=== PATIENT | male | born 2000 | race Caucasian/White ===

== ENCOUNTER 2020-05-08 19:36 | Outpatient (REF) | payer BC, SELFPAY ==
[2020-05-08 20:36] LABS: HCT 46.9 % (40.0-50.0); HGB 16.2 g/dL (13.5-17.5); MCH 29.4 pg (27.0-33.0); MCHC 34.5 % (32.0-36.0); MCV 85.1 fL (80-95); MPV 8.7 fL (8.0-11.0); Platelet Count 375 10^3/uL (130-400); RBC 5.51 10^6/uL (4.36-5.78); RDW 12.1 % (11.8-14.1); RDW-SD 37.7 fL; WBC 8.53 10^3/uL (4.4-10.8)
[2020-05-08 21:00] LABS: Anion Gap 9.9 mmol/L (3-11); BUN 14 mg/dL (7-18); CO2 26.1 mmol/L (21.0-32.0); Calcium 9.7 mg/dL (8.5-10.1); Chloride 104 mmol/L (98-107); Glucose 91 mg/dL (74-106); Potassium 3.8 mmol/L (3.5-5.1); Sodium 140 mmol/L (136-145); TSH 2.01 uIU/mL (0.36-3.74)
== END 2020-05-08 19:37 | disposition home or self-care (01) ==
LOC: NCHCN 19:36
PROVIDERS: Visit Provider Internal Medicine
DX: R00.2 Palpitations (principal); R94.31 Abnormal electrocardiogram [ECG] [EKG]
CPT/HCPCS: 80048; 85027; 84443

== ENCOUNTER 2021-02-12 15:26 | Outpatient (REF) | payer BC, SELFPAY ==
[2021-02-14 15:10] LABS: Chlamydia Result Negative (Negative); GC Result Negative (Negative)
== END 2021-02-12 15:27 | disposition home or self-care (01) ==
LOC: NCHCN 15:26
PROVIDERS: Visit Provider Physician Assistant
DX: R39.15 Urgency of urination (principal)
CPT/HCPCS: 87491; 87591

== ENCOUNTER 2022-03-06 10:13 | Outpatient (REF) | payer BC, SELFPAY ==
[2022-03-06 20:23] LABS: Calculated LDL 89 mg/dL (<100); Cholesterol 160 mg/dL (<200); HDL Cholesterol 66 mg/dL (40-60); Triglyceride 26 mg/dL (<150)
== END 2022-03-06 10:14 | disposition home or self-care (01) ==
LOC: NCHCN 10:13
PROVIDERS: Visit Provider Physician Assistant
DX: Z00.00 Encounter for general adult medical examination without abnormal findings (principal); K58.9 Irritable bowel syndrome, unspecified; Z13.220 Encounter for screening for lipoid disorders
CPT/HCPCS: 80061

== ENCOUNTER 2024-03-31 10:05 | Outpatient (REF) | payer BC, SELFPAY ==
--- OUTSIDE RECORDS SUMMARY | 2024-03-31 10:07 | XMS_ITS | Referral Summary ---
Author Organization [facility] Address [address] [place] [address] Care Team Providers Care Harvesting Supervisor Name Role Phone Unavailable Primary Care Provider Unavailabl e Social History Tobacco Use Types Packs/Day Years Used Date Smoking Tobacco: Never Assessed Sex and Gender Information Value Date Recorded Sex Assigned at Not on file Legal Sex Male 7:52 EST Gender Identity Not on file Sexual Orientation Not on file Plan of Treatment Not on file
--- OUTSIDE RECORDS SUMMARY | 2024-03-31 10:07 | XMS_ITS | Encounter Summary ---
Author Organization [facility] Address [address] [place] [address] Care Team Providers Care Strike Off Machine Operator Name Role Phone Unavailable Primary Care Provider Unavailabl e Encounter Details Date Type Department Care Team (Late st Contact Info) Description 02/13/2021 Lab Requisition [facility] Pathology & Laboratory Medicine - [facility] [address] [place] [address] Outr Resulting Lab, Provider Social History Tobacco Use Types Packs/Day Years Used Date Smoking Tobacco: Never Assessed Sex and Gender Information Value Date Recorded Sex Assigned at Not on file Legal Sex Male 7:52 EST Gender Identity Not on file Sexual Orientation Not on file documented as of this encounter Plan of Treatment Not on file documented as of this encounter Procedures Procedure Name Priority Date/Time Associated Diagnosis Comments CHLAMYDIA/N. GONORRHOEAE AMPLIFIED NUCLEIC ACID Routine 02/12/2021 14:30 EST documented in this encounter Results * CHLAMYDIA/N. GONORRHOEAE AMPLIFIED RNA (02/12/2021 14:30 EST) Neisseria gonorrhoeae Result Negative Negative 02/14/2021 15:05 EST [facility] Chlamydia trachomatis Result Negative Negative 02/14/2021 15:05 EST [facility] Urine URINE / Unknown 02/12/2021 1 4:30 EST 02/13/2021 22:21 EST us Provider Outr Resulting Lab MICROBIOLOGY - GENER AL ORDERABLES Final Result [facility] [address] [place] [address] documented in this encounter Visit Diagnoses Not on filedocumented in this encounter
--- OUTSIDE RECORDS SUMMARY | 2024-03-31 10:07 | XMS_ITS | Clinical Summary ---
Author Organization [facility] Address [address] [place] [address] Care Team Providers Care Brooch Maker Novelty Name Role Phone Unavailable Primary Care Provider Unavailabl e Social History Tobacco Use Types Packs/Day Years Used Date Smoking Tobacco: Never Assessed Sex and Gender Information Value Date Recorded Sex Assigned at Not on file Legal Sex Male 7:52 EST Gender Identity Not on file Sexual Orientation Not on file Plan of Treatment Health Maintenance Due Date Last Done Comments Hepatitis C Screen 1998 Hepatitis B Vaccine (1 of 3 - 19+ 3-dose series) 06/11 COVID-19 Vaccine (2023- season) 2023
[2024-03-31 18:56] LABS: ALT 24 U/L (16-63); AST 23 U/L (15-37); Albumin 4.3 g/dL (3.4-5.0); Alkaline Phosphatase 50 U/L (46-116); Anion Gap -1.3 mmol/L (3-11); BUN 20 mg/dL (7-18); Bilirubin, Total 1.18 mg/dL (0.2-1.0); CO2 29.3 mmol/L (21.0-32.0); CREATININE 1.1 mg/dL (0.70-1.30); Calcium 9.8 mg/dL (8.5-10.1); Calculated LDL 106 mg/dL (<100); Chloride 102 mmol/L (98-107); Cholesterol 176 mg/dL (<200); Estimated GFR 95.54 (mL/min/1.73m2); Glucose 97 mg/dL (74-106); HDL Cholesterol 63 mg/dL (40-60); Potassium 3.8 mmol/L (3.5-5.1); Sodium 130 mmol/L (136-145); Total Protein 7.6 g/dL (6.4-8.2); Triglyceride 37 mg/dL (<150)
[2024-04-03 10:49] LABS: HIV-1/2 Ag & Ab Screen Negative (Negative)
[2024-04-03 11:18] LABS: Hepatitis C Ab w Rflx HCV PCR Negative (Negative)
== END 2024-03-31 10:06 | disposition home or self-care (01) ==
LOC: NCHCN 10:05
PROVIDERS: Visit Provider Physician Assistant
DX: Z13.220 Encounter for screening for lipoid disorders (principal); Z11.59 Encounter for screening for other viral diseases; Z11.4 Encounter for screening for human immunodeficiency virus [HIV]
CPT/HCPCS: 80053; 80061; 86803; 87389

== ENCOUNTER 2024-05-05 11:02 | Outpatient (REF) | payer BC, SELFPAY ==
[2024-05-05 19:17] LABS: Anion Gap 3.5 mmol/L (3-11); BUN 17 mg/dL (7-18); CO2 29.5 mmol/L (21.0-32.0); Calcium 9.6 mg/dL (8.5-10.1); Chloride 107 mmol/L (98-107); Estimated GFR 107.12 (mL/min/1.73m2); Glucose 99 mg/dL (74-106); Sodium 140 mmol/L (136-145)
== END 2024-05-05 11:03 | disposition home or self-care (01) ==
LOC: NCHCN 11:02
PROVIDERS: PCP Physician Assistant; Visit Provider Physician Assistant
DX: E87.1 Hypo-osmolality and hyponatremia (principal)
CPT/HCPCS: 80048